=== PATIENT | female | born 1980 | race Caucasian/White ===

== ENCOUNTER → 2019-10-08 | Outpatient (CLI) | payer BC ==
[2011-11-27 19:25] VITALS: BP 102/61
[~2019-10-08] MED LIST: DUO-KAPS1 CAP PO
[2019-10-08 10:34] LABS: EOS # 0.2 (0.04-0.40); EOS % 2.4 % (1.0-5.0); HEMATOCRIT 40.2 % (37.0-47.0); LYMPH# 1.7 (1.50-4.00); MEAN CELL VOLUME 91 fl (78-100); MEAN CORPUSCULAR HEMOGLOBIN 30 pg (27-31); MEAN CORPUSCULAR HGB CONC 32 g/dL (33-37); MEAN PLATELET VOLUME 10.3 fl (7.4-10.4); MONO # 0.6 (0.20-0.80); NEU # 4.6 (1.40-6.50); PLATELET COUNT 281 K/mm3 (130-400); RED CELL DISTRIBUTION WIDTH 13.1 % (11.5-14.5); WHITE BLOOD COUNT 7.2 K/mm3 (4.8-10.8)
[2019-10-08 10:44] LABS: POTASSIUM 3.6 mmol/L (3.5-5.1)
[2019-10-08 10:45] LABS: ALBUMIN 4.5 g/dL (3.5-5.0)
[2019-10-08 10:46] LABS: CALCIUM 9.5 mg/dL (8.3-10.5)
[2019-10-08 10:47] LABS: TOTAL PROTEIN 7.6 g/dL (6.4-8.3)
[2019-10-08 10:49] LABS: TOTAL BILIRUBIN 0.5 mg/dL (0.2-1.2)
== END ==
LOC: LAB 10:01
PROVIDERS: Family Medicine
DX: Z00.00 Encounter for general adult medical examination without abnormal findings (principal); E78.5 Hyperlipidemia, unspecified

== ENCOUNTER 2021-07-02 19:57 | Emergency (ER) | payer BC ==
[~2021-07-02] VITALS: Ht 162.6 cm; Wt 99.5 kg
[2021-07-02 20:46] VITALS: BP 121/61
[2021-07-02] MEDS ORDERED: PROGESTERONE CREAM (20:56)
== END 2021-07-02 23:18 | disposition home or self-care (01) ==
LOC: ED 19:57
DX: S86.911A Strain of unspecified muscle(s) and tendon(s) at lower leg level, right leg, initial encounter (principal); X50.9XXA Other and unspecified overexertion or strenuous movements or postures, initial encounter; Y93.68 Activity, volleyball (beach) (court)

== ENCOUNTER 2023-07-18 07:53 | Outpatient (RCR) | payer BC ==
[~2023-07-18 07:53] MED LIST changes: +PROGESTERONE CREAM
== END 2023-08-15 | disposition home or self-care (01) ==
LOC: PT
DX: M25.562 Pain in left knee (principal)

== ENCOUNTER 2023-09-04 08:00 | Outpatient (RCR) | payer BC | END 2023-09-15 | disposition home or self-care (01) | LOC: PT | DX: M79.671 Pain in right foot (principal) ==

== ENCOUNTER 2023-09-17 08:00 | Outpatient (RCR) | payer BC | END 2023-10-16 | disposition home or self-care (01) | LOC: PT | DX: M79.671 Pain in right foot (principal) ==

== ENCOUNTER → 2024-01-15 | Outpatient (CLI) | payer BC ==
[2024-01-15 08:01] LABS: BASO # 0.04 K/mm3 (0.02-0.10); EOS # 0.13 K/mm3 (0.04-0.40); EOS % 1.8 % (1.0-5.0); HEMATOCRIT 36.9 % (37.0-47.0); HEMOGLOBIN 12.6 g/dL (12.5-16.0); LYMPH# 1.85 K/mm3 (1.50-4.00); MEAN CELL VOLUME 91 fl (78-100); MEAN CORPUSCULAR HEMOGLOBIN 31 pg (27-31); MEAN CORPUSCULAR HGB CONC 34 g/dL (33-37); MEAN PLATELET VOLUME 8.9 fl (7.4-10.4); MONO # 0.63 K/mm3 (0.20-0.80); NEU # 4.57 K/mm3 (1.40-6.50); PLATELET COUNT 301 K/mm3 (130-400); RED BLOOD COUNT 4.07 M/mm3 (4.10-5.30); RED CELL DISTRIBUTION WIDTH 12.3 % (11.5-14.5); WHITE BLOOD COUNT 7.2 K/mm3 (4.8-10.8)
[2024-01-15 08:23] LABS: ALBUMIN 4.5 g/dL (3.5-5.0)
[2024-01-15 08:24] LABS: CALCIUM 9.2 mg/dL (8.3-10.5)
[2024-01-15 08:25] LABS: TOTAL PROTEIN 7.1 g/dL (6.4-8.3)
[2024-01-15 08:27] LABS: TOTAL BILIRUBIN 0.5 mg/dL (0.2-1.2)
== END ==
LOC: LAB 07:45
PROVIDERS: Family Medicine
DX: E78.5 Hyperlipidemia, unspecified (principal); E66.9 Obesity, unspecified

== ENCOUNTER → 2024-02-05 | Outpatient (CLI) | payer BC | LOC: LAB 08:00 | DX: Z13.1 Encounter for screening for diabetes mellitus (principal) ==

== ENCOUNTER → 2024-02-18 | Outpatient (CLI) | payer BC | LOC: LAB 12:39 | DX: Z13.1 Encounter for screening for diabetes mellitus (principal) ==

== ENCOUNTER → 2024-03-03 | Outpatient (CLI) | payer BC ==
[2024-03-03 11:31] LABS: ALBUMIN 4.3 g/dL (3.5-5.0)
[2024-03-03 11:32] LABS: CALCIUM 8.8 mg/dL (8.3-10.5)
[2024-03-03 11:34] LABS: TOTAL PROTEIN 6.6 g/dL (6.4-8.3)
[2024-03-03 11:35] LABS: TOTAL BILIRUBIN 0.3 mg/dL (0.2-1.2)
[2024-03-03 11:40] LABS: MAGNESIUM 1.67 mg/dL (1.60-2.60)
== END ==
LOC: LAB 11:11
PROVIDERS: Family Medicine
DX: I10 Essential (primary) hypertension (principal); E87.1 Hypo-osmolality and hyponatremia